=== PATIENT | male | born 1955 | race Caucasian/White ===

== ENCOUNTER 2020-07-04 14:27 | Outpatient (CLI) | payer MEDICARE, MEDICAID, SELFPAY ==
--- NOTE | 2020-07-04 14:38 | CT_ITS ---
WS: [id number] CT scan of the chest without IV contrast, additional two-dimensional coronal and sagittal reconstruct ion was performed. 07/04/2020 Clinical Data: TOBACCO DEPENDENCE IN REMISSION Comparison: None. DLP: 965.[address] scans at [facility] use at least one of these dose optimization techniques: automat ed exposure control; mA and/or kV adjustment per patient size (includes targeted exams where dose is matched to clinical indication); or iterative reconstruction. Findings: No nodules, masses or effusions are seen. The heart size is normal with no pericardial effusion. No p neumonia or pneumothorax is present. The pulmonary arterial system and thoracic aorta demonstrate no abnormalities or dilatations. There is no axillary or significant mediastinal adenopathy. There is a large calcified granuloma in the left hilum. The upper abdomen demonstrates no abnormalities. 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 CT/CT chest wo con [id number] Impression: Negative CT scan of the chest without IV contrast.
== END 2020-07-04 14:28 | disposition home or self-care (01) ==
LOC: RADWPI 14:34
PROVIDERS: Family Provider Family Medicine; PCP Family Medicine
DX: F17.201 Nicotine dependence, unspecified, in remission (principal)
CPT/HCPCS: 71250

== ENCOUNTER → 2023-01-26 15:44 | Outpatient (BNVA) | payer MEDICARE, MEDICAID, SELFPAY | PROVIDERS: Family Provider Family Medicine; PCP Family Medicine; Visit Provider Clinical Nurse Specialist Adult Health | DX: E11.9 Type 2 diabetes mellitus without complications (principal); Z12.5 Encounter for screening for malignant neoplasm of prostate | CPT/HCPCS: 80053; 83036; 85025; G0103 ==

== ENCOUNTER → 2023-08-29 15:30 | Outpatient (BNVA) | payer MEDICARE, MEDICAID, SELFPAY | PROVIDERS: Family Provider Family Medicine; PCP Clinical Nurse Specialist Adult Health; Visit Provider Clinical Nurse Specialist Adult Health | DX: E11.9 Type 2 diabetes mellitus without complications (principal); Z12.11 Encounter for screening for malignant neoplasm of colon; I10 Essential (primary) hypertension; E78.2 Mixed hyperlipidemia | CPT/HCPCS: 80053; 80061; 83036; 85025 ==

== ENCOUNTER → 2023-09-06 09:52 | Outpatient (BNVA) | payer MEDICARE, MEDICAID, SELFPAY | PROVIDERS: Family Provider Family Medicine; PCP Clinical Nurse Specialist Adult Health; Referring Provider Clinical Nurse Specialist Adult Health; Visit Provider Surgery | DX: Z12.11 Encounter for screening for malignant neoplasm of colon (principal) | CPT/HCPCS: 99024; 99204 ==

== ENCOUNTER 2023-10-05 11:02 | Day surgery (SDC) | payer MEDICARE, MEDICAID, SELFPAY ==
[2023-10-05 11:28] VITALS: BP 179/80; PULSE 77; RESP 18; TEMP 36.4; O2SAT 95; BMI 29.0
[2023-10-05] MEDS: sodium chloride 0.9% 1,000 ML 30 ML IV (11:54)
--- NOTE | 2023-10-05 12:48 | ANES.PREANE2 ---
Pre-Anesthetic Assessment Height/Weight: Height 1.68 m Weight 81.647 kg Temp Pulse Resp BP Pulse Ox O2 Del Method 97.6 F 77 18 179/80 95 Room Air 10/05/23 11:28 10/05/23 11:28 10/05/23 11:28 10/05/23 11:28 10/05/23 11:28 10/05/23 11:28 Operation Date: 10/05/23 11:15 Proposed Procedures p 45446 colon G0121 screen colon A risk Z12.11(Not Applicable) - David Mueller DO Familial anesthetic complications: None Was Beta Jhon taken within 24 hours: N/A Was Clonidine taken within 24 hours: N/A Last intake: Intake Last Liquid Date 10/04/23 Last Liquid Time 22:00 Last Solid Date 10/03/23 Last Solid Time 18:00 Social Tobacco and No alcohol Exam alert, oriented x 3, clear to auscultation bilaterally and regular rate & rhythm Airway Dentition: other (missing teeth) CV/HEM Hypertension Metabolic Diabetes Mellitus and Hyperlipidemia Neuropsych TIA Anesthetic Plan ASA status: 3 Anesthesia: MAC Risk of > 500 ml blood loss (7ml/kg in children): No Medications/Allergies Home Medications Medication Instructions Recorded Confirmed Last Taken Type aspirin 81 mg tablet,delayed 81 mg PO DAILY 08/29/23 10/05/23 10/03/23 History release (Adult Aspirin Regimen) lisinopril 10 mg tablet 10 mg PO DAILY #90 tabs 09/26/23 10/05/23 10/03/23 Rx Allergies Allergy/AdvReac Type Severity Reaction Status Date / Time metformin Allergy Intermediate tremors Verified 09/26/23 14:38 and headache Current Medications Generic Name Dose Route Start Last Admin Trade Name Freq PRN Reason Stop Dose Admin Sodium Chloride 1,000 mls @ 30 mls/hr 10/05/23 11:30 10/05/23 11:54 Sodium Chloride 0.9% IV 10/06/23 11:29 30 mls/hr .Q24H JOSEPH Administration PFSH Anesthesia Medical History (Updated 09/26/23 @ 14:59 by Izaiah Penny NP) Essential hypertension Gout Hx-TIA (transient ischemic attack) Hyperlipidemia Diet controlled Screening for colon cancer Type 2 diabetes mellitus without complications diet controlled Surgical History No pertinent past surgical history Family History Sister Postsurgical cardiac pacemaker in situ Father Diabetes Mother Postsurgical cardiac pacemaker in situ Other CAD (coronary artery disease) Social History Smoking and tobacco/nicotine status: former use of tobacco/nicotine Quit status (tobacco/nicotine): has quit using Former quit date comment: 40 pack year history, quit before 2012. stopped chewing 07/2021 Alcohol intake: former Data Anesthesia Cardiac Studies: No Data to Display
--- NOTE | 2023-10-05 13:14 | W.PM.OPSUD ---
Surgery/Procedure H&P Update DATE OF PROCEDURE: October 05, 2023 DATE H&P PERFORMED: 09/06/23 H&P UPDATE INFORMATION: I have reviewed H&P completed within last 30 days, I have examined patient prior to procedure and No changes to prior documentation PLANNED PROCEDURE: Operation Date: 10/05/23 11:15 Proposed Procedures p 90751 colon G0121 screen colon A risk Z12.11(Not Applicable) - David Mueller, DO
[2023-10-05 13:41] VITALS: BP 116/74; PULSE 74; RESP 17; TEMP 36.2; O2SAT 98
[2023-10-05 13:50] VITALS: BP 111/67; PULSE 79; RESP 17; O2SAT 96
--- NOTE | 2023-10-05 14:05 | ANE.PACU2 ---
Inpatient post-anesthesia follow up: Airway intact: Yes Vital signs: Temperature 97.2 F Pulse Rate 79 Respiratory Rate 17 Blood Pressure 111/67 Pulse Oximetry 96 Oxygen Delivery Me thod Room Air Oxygen Flow Rate 4 Fraction of Inspir ed Oxygen Hydration adequate: Yes Nausea and vomiting: No Pain level: 1 Mental status: Baseline
== END 2023-10-05 14:07 | disposition home or self-care (01) ==
PROVIDERS: PCP Clinical Nurse Specialist Adult Health; Visit Provider Surgery
PROC: 0DJD8ZZ Inspection of Lower Intestinal Tract, Via Natural or Artificial Opening Endoscopic (ICD-10-PCS; CPT 45378; principal; 2023-10-05 11:15)
DX: Z12.11 Encounter for screening for malignant neoplasm of colon (principal); K57.30 Diverticulosis of large intestine without perforation or abscess without bleeding; D12.2 Benign neoplasm of ascending colon; D12.5 Benign neoplasm of sigmoid colon; I10 Essential (primary) hypertension; E11.9 Type 2 diabetes mellitus without complications; E78.5 Hyperlipidemia, unspecified; Z86.73 Personal history of transient ischemic attack (TIA), and cerebral infarction without residual deficits; Z79.82 Long term (current) use of aspirin; Z87.891 Personal history of nicotine dependence
CPT/HCPCS: 45385; 88305; J2704; J7030

== ENCOUNTER → 2023-10-18 14:05 | Outpatient (BNVA) | payer MEDICARE, MEDICAID, SELFPAY | PROVIDERS: PCP Clinical Nurse Specialist Adult Health; Visit Provider Surgery | DX: Z09 Encounter for follow-up examination after completed treatment for conditions other than malignant neoplasm (principal); D12.6 Benign neoplasm of colon, unspecified | CPT/HCPCS: 99214 ==

== ENCOUNTER → 2023-11-23 16:23 | Outpatient (BNVA) | payer MEDICARE, MEDICAID, SELFPAY | PROVIDERS: PCP Clinical Nurse Specialist Adult Health; Visit Provider Clinical Nurse Specialist Adult Health | DX: I10 Essential (primary) hypertension (principal); E11.9 Type 2 diabetes mellitus without complications; E78.2 Mixed hyperlipidemia | CPT/HCPCS: 80053; 80061; 83036; 85025 ==

== ENCOUNTER 2024-09-14 13:06 | Outpatient (CLI) | payer OTHER, SELFPAY ==
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
== END 2024-09-14 13:07 | disposition home or self-care (01) ==
LOC: RAD 13:18
PROVIDERS: PCP Clinical Nurse Specialist Adult Health; Visit Provider Clinical Nurse Specialist Adult Health
DX: M50.30 Other cervical disc degeneration, unspecified cervical region (principal); M50.323 Other cervical disc degeneration at C6-C7 level; M25.78 Osteophyte, vertebrae; V89.2XXA Person injured in unspecified motor-vehicle accident, traffic, initial encounter; I65.22 Occlusion and stenosis of left carotid artery
CPT/HCPCS: 72040; 73030

== ENCOUNTER 2024-10-24 16:27 | Outpatient (CLI) | payer MEDICARE, SELFPAY ==
--- NOTE | 2024-10-24 17:00 | USCV_ITS ---
Beau Norris Age: 69 Gender: M : 1955 Exam Date: 10/24/2024 16:49 Ordering Phys: Izaiah Penny NP Technologist: [facility] Exam Location: [facility] – [place], [place] Indication: Risk Factors: Previous Vascular Surgery: Right Brachial BP: / Left Brachial BP: / Right Left Velocity (cm/s) Spectral Plaque Velocity (cm/s) Spectral Plaque Syst/Diast Broadening Syst/Diast Broadening 82.00/ 18.10 Prox CCA 81.60 / 10.80 86.30/ 23.00 Mid CCA 81.60 / 15.60 56.90/ 13.00 Distal CCA 81.40 / 17.50 57.70/ 13.80 Prox ICA 110.80/ 9.70 80.80/ 26.40 Mid ICA 61.50 / 20.70 80.60/ 25.30 Distal ICA 40.10 / 12.60 181.20 ECA 115.60 1.40 ICA/CCA 1.40 Antegrade Vertebral Antegrade 61.60/ 8.00 cm/s 38.20/ 10.90 cm/s Bi Subclavian Bi 89.50 149.4 0 CONCLUSIONS Right ICA stenosis <50%. Moderate atheromatous plaque right carotid bulb/ICA. Left ICA stenosis <50%. Moderate atheromatous plaque left carotid bulb/ICA. Intimal thickening in the common carotid arteries and internal carotid arteries bilaterally. Normal antegrade Doppler flow noted in the right vertebral artery. Normal antegrade Doppler flow noted in the left vertebral artery. Kolton Reyna MD (Electronically Signed) Final Date: 25 October 2024 10:36 S
== END 2024-10-24 16:28 | disposition home or self-care (01) ==
LOC: RAD 16:28
PROVIDERS: PCP Clinical Nurse Specialist Adult Health; Visit Provider Clinical Nurse Specialist Adult Health
DX: I65.23 Occlusion and stenosis of bilateral carotid arteries (principal)
CPT/HCPCS: 93880